=== PATIENT | female | born 1960 | race Two or more races ===

== ENCOUNTER 2024-06-13 10:32 | Emergency (ER) | payer OTHER ==
[~2024-06-13] VITALS: Ht 154.9 cm; Wt 68.0 kg
[2024-06-13] MEDS ORDERED: KAPSPARGO SPRIN25 MG (10:55)
[2024-06-13] MEDS ORDERED: SYNTHROID75 MCG PO (10:55)
[2024-06-13] MEDS ORDERED: ADVIL DUAL ACT1 EACH PO (14:24)
== END 2024-06-13 14:26 | disposition home or self-care (01) ==
LOC: ER 10:35
DX: S29.8XXA Other specified injuries of thorax, initial encounter (principal); W18.39XA Other fall on same level, initial encounter; Y93.89 Activity, other specified; Y92.89 Other specified places as the place of occurrence of the external cause; Z88.2 Allergy status to sulfonamides